=== PATIENT | female | born 1975 | race Caucasian/White ===

== ENCOUNTER 2022-01-07 09:24 | Day surgery (SDC) | payer OTHER ==
[~2022-01-07] VITALS: Ht 167.6 cm; Wt 91.9 kg
[~2022-01-07 09:24] MED LIST: Budeprion Xl300 MG PO; DHEA25 M1 PO; ERGO400 PO; PROG100 PO; TESTOSTERONE60 GM TOP; VITAMIN D325 MC3 PO; ZOLP10 PO; [UNRECOGNIZED DRUG - OTHER] PO
--- NOTE | 2022-01-07 12:09 | NUR ---
GETTING DRESSED AT THIS TIME VSS. NO CHANGE IN PAIN LEVEL.
--- NOTE | 2022-01-07 12:17 | NUR ---
Discharge instructions reviewed with patient. Patient verbalizes understanding. Copy given to patient to take home. Patient States Post-Procedure ride home has been arranged. Discharged via wheelchair to private car for ride home.
== END 2022-01-07 22:46 | disposition home or self-care (01) ==
LOC: ORSCMMR 09:24 → ORD 14:15 → ORSCMMR 22:46
PROVIDERS: Obstetrics & Gynecology
PROC: 0U5B8ZZ Destruction of Endometrium, Via Natural or Artificial Opening Endoscopic (ICD-10-PCS; principal; 2022-01-07 10:30)
PROC: 0UDB8ZX Extraction of Endometrium, Via Natural or Artificial Opening Endoscopic, Diagnostic (ICD-10-PCS; principal; 2022-01-07 10:30)
DX: N92.0 Excessive and frequent menstruation with regular cycle (principal); N94.6 Dysmenorrhea, unspecified; D50.0 Iron deficiency anemia secondary to blood loss (chronic); N80.0 Endometriosis of uterus; E03.9 Hypothyroidism, unspecified; Z79.899 Other long term (current) drug therapy; F41.8 Other specified anxiety disorders
CPT/HCPCS: 88305; J0690; J1100; J1885; J2250; J2405; J2704; J3010; J7120